=== PATIENT | male | born 1980 | race Two or more races ===

== ENCOUNTER 2018-10-06 14:50 | Emergency (ER) | payer OTHER ==
[~2018-10-06] VITALS: Ht 182.9 cm; Wt 98.4 kg
[2018-10-06] MEDS ORDERED: KETOROLAC TROMETHAMINE 15 MG/ML VIAL ONE (16:00)
[2018-10-06] MEDS ORDERED: ONDANSETRON HCL/PF 4 MG/2 ML VIAL ONE (16:00)
[2018-10-06] MEDS: ONDANSETRON HCL/PF 4 MG/2 ML VIAL IVP ONE (16:18)
[2018-10-06] MEDS: IV NS 0.9% 1,000 ML BAG IV ONE (16:18)
[2018-10-06] MEDS: KETOROLAC TROMETHAMINE INJ 30 MG/ML VIAL IV ONE (16:19)
--- NOTE | 2018-10-06 16:20 | NUR ---
ITALIAN SPEAKING C/O N/V/D X 1 DAY WITH H/A , COUGH. PT AAOX4, VSS. DENIES CP, SOB, DIZZINESS @ THIS TIME. PT SEEN & EVAL'D BY ORACIO SENA & WILL CONT TO MONITOR. MEDICATED FOR NAUSEA & CAIN, PT EDUARDO WELL.
--- NOTE | 2018-10-06 18:36 | NUR ---
Patient discharged to home in stable condition. Written and verbal after care instructions given. Patient verbalizes understanding of instruction. IV removed. Catheter intact and site benign. Pressure and 4x4 applied to site. No bleeding noted.
[2018-10-06 18:37] VITALS: BP 118/64
== END 2018-10-06 18:38 | disposition home or self-care (01) ==
LOC: ER 14:52
DX: A08.4 Viral intestinal infection, unspecified (principal); F17.200 Nicotine dependence, unspecified, uncomplicated; Z88.8 Allergy status to other drugs, medicaments and biological substances; Z98.890 Other specified postprocedural states
CPT/HCPCS: J1885; J2405; J7030